=== PATIENT | male | born 1960 | race Caucasian/White ===

== ENCOUNTER → 2017-02-13 | Outpatient (CLI) | payer BC ==
[~2017-02-13] MED LIST: REGADENOSON 0.4 MG/5 ML DISP.SYRIN. IV ONE
--- NOTE | 2017-02-13 12:13 | RAD ---
APPROVED REPORT Test Type: Pharmacological Stress Nurse/Tech: Yudith Morgan R.N. Test Indications: CAD Cardiac History: Hypertension, 2 stents 5 yrs. ago Medications: See Electronic Medical Record Medical History: See Electronic Medical Record Resting ECG: NSR Resting Heart Rate: 64 bpm Resting Blood Pressure: 127/84mmHg Pretest Chest Pain: No chest pain Nurse/Tech Notes S1S2, lungs sound clear Consent: The procedure was explained to the patient in lay terms. Informed consent was witnessed. Cam eout was entered into [employer]. History and Stress Test performed by Yudith Morgan R.N. Pharm. Details Pharmacologic stress testing was performed using 0.4mg per 5ml of regadenoson given intravenously ove r 7-10 seconds. Stress Symptoms No chest pain or symptoms. POST EXERCISE Reason for Termination: Infusion complete Max HR: 92 bpm Max Blood Pressure: 117/74mmHg Blood Pressure response to exercise: Normal blood pressure response during stress. Chest Pain: No. Arrhythmia: No. ST Change: No. INTERPRETATION Stress EKG Conclusion: Baseline EKG showed sinus rhythm. No ischemic changes at peak stress. No arr hythmias. Imaging Protocol IMAGE PROTOCOL: Rest Tc-99m/stress Tc-99m 1 day Rest: Stress: Viability: Radiopharm.Tc99m MiatxnzcbQv93y Sestamibi Dose11.2mCi 34.4mCi Duration 15min. 10min. Img Date 02/13/2017 02/13/2017 Inj-Img Qgbj85yvs. 60min. Rest Admin Site:IV - Left HandAdministrator:SPARKLE Crocker Stress Admin Site: IV - Left HandAdministrator: SPARKLE Crocker STRESS DATA End Diast. Vol.145.0mlAv. Heart Rate80.0bpm End Syst. Vol.44.0mlCO Index BSA8.1L/min Myocardial Pvrm584.0gEject. Ulhggzdv70.0% Stress Rates Pk. Fill Rate3.28EDV/secLVtime Pk. Fill 194.49msec Pk. Empty Rate4.87ESV/secLVtime Pk. Kqzmx027.53msec 08/27 Pk. Fill1.89EDV/sec Stress Scores Regional WT0.00Summed WT1.00 Regional WM0.00Summed WM1.00 Study quality was good. Left Ventricular size was Normal at Rest and Stress. Lung uptake was Normal. Left Ventricular ejection fraction is 70%. LV Perfusion Scintigraphic images showed small to moderate fixed defect involving the anteroapical wall consistent with previous myocardial infarction without any significant reversibility. Wall Motion Normal regional wall motion. LV Perf. Quant 17 Seg. SSS4.00 17 Seg. SRS12.00 17 Seg. SDS0.00 Stress Defect Extent (% LAD)23.80Rest Defect Extent (% LAD)46.90Rev. Defect Extent (% LAD)0.00 Stress Defect Extent (% LCX) 0.00Rest Defect Extent (% LCX)16.30Rev. Defect Extent (% LCX)0.00 Stress Defect Extent (% RCA)0.00Rest Defect Extent (% RCA)1.10Rev. Defect Extent (% RCA)0.00 Stress Defect Extent (% SIDDHARTHA)10.00Rest Defect Extent (% SIDDHARTHA)27.80Rev. Defect Extent (% SIDDHARTHA)0.00 Conclusion 1. Regadenoson cardioisotope stress test showed cncuq-ff-lahmdrxz anteroapical wall infarction withou t any significant ischemia. 2. Normal left ventricular systolic function with ejection fraction calculated at 70%. 3. Low risk for cardiac events.
--- NOTE | 2017-02-13 13:29 | RAD ---
APPROVED REPORT Patient Location : OUT-PATIENT Indications VENOUS INSUFFICIENCY Findings Lorenzo scale images of the saphenofemoral junctions and great saphenous veins were obtained. Grayscale images are off the lesser saphenous veins were also obtained. The right great saphenous vein measures approximate 7 mm at the saphenofemoral junction and does not show any evidence of reflux. The right lesser saphenous vein measures approximate 5 mm and does not s how any evidence of reflux. The left great saphenous vein measures 6 mm in the lesser saphenous vein measures 4 mm and these do not show any evidence of reflux. Critical Notification Critical Value: No <Conclusion> No evidence of reflux in the bilateral greater and lesser saphenous veins. No evidence of thrombus on limited imaging.
== END | disposition home or self-care (01) ==
LOC: NM 14:15
PROVIDERS: ATTEND Internal Medicine Cardiovascular Disease
DX: I25.10 Atherosclerotic heart disease of native coronary artery without angina pectoris (principal); I87.2 Venous insufficiency (chronic) (peripheral); I10 Essential (primary) hypertension; Z95.5 Presence of coronary angioplasty implant and graft; Z79.01 Long term (current) use of anticoagulants
CPT/HCPCS: 78452; 93017; 93970; 96374; 96375; 96376; A9500; J2785

== ENCOUNTER → 2018-10-26 | Outpatient (CLI) | payer BC ==
--- NOTE | 2018-10-26 11:52 | CARD ---
MR#: [id number] Date of Study: 10/26/2018 Ordering Physician: KIMMIE MEYER, Referring Physician: KIMMIE MEYER Tech: Morenita Foy ANY APPROVED REPORT EXAM: Two-dimensional and M-mode echocardiogram with Doppler and color Doppler. Other Information Quality : AverageHR: 64bpm Rhythm : NSR INDICATION CAD 2D DIMENSIONS RVDd3.9 (2.9-3.5cm)Left Atrium(2D)3.5 (1.6-4.0cm) IVSd1.5 (0.7-1.1cm)Aortic Root(2D)3.4 (2.0-3.7cm) LVDd4.1 (3.9-5.9cm)LVOT Diameter2.1 (1.8-2.4cm) PWd1.1 (0.7-1.1cm)LVDs2.0 (2.5-4.0cm) FS (%) 50.5 %SV60.0 ml LVEF(%)79.0 (>50%) Aortic Valve AoV Peak Ranulfo.145.3cm/sAoV VTI28.4cm AO Peak GR.8.4mmHgLVOT Peak Ranulfo.108.1cm/s AO Mean GR.4mmHgAVA (VMAX)2.65cm2 WANDY (VTI)2.70cm2 Mitral Valve MV E Xwuazpwy99.0cm/sMV DECEL FIUC175fy MV A Pygckwdm21.9cm/sE/A Ratio0.8 MV A Lllijbwn888cd Pulmonary Valve PV Peak Exjjhpme876.4cm/s Tricuspid Valve TR P. Lpudhwqm978ui/sRAP CDFMEJMY3yoNu TR Peak Gr.20wuLzUDKU89egHu LEFT VENTRICLE The left ventricle is normal size. Proximal septal thickening is noted. The left ventricular systolic function is normal and the ejection fraction is within normal range. The Ejection Fraction is 65-70% . There is normal LV segmental wall motion. Transmitral Doppler flow pattern is Grade I-abnormal rela xation pattern. RIGHT VENTRICLE The right ventricle is borderline dilated. There is normal right ventricular wall thickness. The righ t ventricular systolic function is normal. ATRIA The left atrium size is normal. The right atrium size is normal. The interatrial septum is intact wit h no evidence for an atrial septal defect or patent foramen ovale as noted on 2-D or Doppler imaging. AORTIC VALVE The aortic valve is trileaflet. Doppler and Color Flow revealed no significant aortic regurgitation. There is no significant aortic valvular stenosis. MITRAL VALVE The mitral valve is normal in structure and function. There is no evidence of mitral valve prolapse. There is no mitral valve stenosis. Doppler and Color Flow revealed no mitral valve regurgitation note d. TRICUSPID VALVE The tricuspid valve is normal in structure and function. Doppler and Color Flow revealed trace tricus pid regurgitation. The PA pressure was estimated at 20 mmHg. There is no tricuspid valve prolapse or vegetation. There is no tricuspid valve stenosis. PULMONIC VALVE Doppler and Color Flow revealed trace to mild pulmonic valvular regurgitation. There is no pulmonic v alvular stenosis. GREAT VESSELS The aortic root is normal in size. The ascending aorta is normal in size. The IVC is normal in size a nd collapses >50% with inspiration. PERICARDIAL EFFUSION There is no evidence of significant pericardial effusion. Critical Notification Critical Value: No <Conclusion> The left ventricular systolic function is normal and the ejection fraction is within normal range. Th e Ejection Fraction is 65-70%. There is normal LV segmental wall motion. Signed by : Chai Phillips, Electronically Approved : 10/26/2018 11:51:26
== END | disposition home or self-care (01) ==
LOC: ECHO 09:18
PROVIDERS: ATTEND Internal Medicine Cardiovascular Disease
DX: I25.10 Atherosclerotic heart disease of native coronary artery without angina pectoris (principal); R00.8 Other abnormalities of heart beat
CPT/HCPCS: 93306

== ENCOUNTER → 2019-06-28 | Outpatient (CLI) | payer BC ==
--- NOTE | 2019-06-28 12:31 | RAD ---
MR#: [id number] Date of Study: 06/28/2019 Ordering Physician: KIMMIE MEYER Referring Physician: LISA SARGENT Tech: RT Naresh CelesteR) (N) APPROVED REPORT Test Type: Pharmacological Stress Nurse/Tech: Anita Mares RN Test Indications: CAD Cardiac History: Hypertension, 2 Cardiac stents 2011 Medications: See Electronic Medical Record Medical History: See Electronic Medical Record Resting ECG: SB Resting Heart Rate: 59 bpm Resting Blood Pressure: 115/74mmHg Pretest Chest Pain: No chest pain Nurse/Tech Notes S1S2, Lungs CTA Consent: The procedure was explained to the patient in lay terms. Informed consent was witnessed. Cam eout was entered into [employer]. History and Stress Test performed by RT Nadeem (R) (N) Pharm. Details Pharmacologic stress testing was performed using 0.4mg per 5ml of regadenoson given intravenously ove r 7-10 seconds. Stress Symptoms Dyspnea POST EXERCISE Reason for Termination: Infusion complete Max HR: 93 bpm Max Blood Pressure: 125/61mmHg Blood Pressure response to exercise: Normal blood pressure response during stress. Heart Rate response to exercise: Normal Chest Pain: No. Arrhythmia: No. ST Change: No. INTERPRETATION Stress EKG Conclusion: No evidence of stress induced EKG changes Imaging Protocol IMAGE PROTOCOL: Rest Tc-99m/stress Tc-99m 1 day Rest: Stress: Viability: Radiopharm.Tc99m ZmnngpkjgFz54t Sestamibi Dose10.5mCi 31.6mCi Duration 13min. 13min. Img Date 06/28/2019 06/28/2019 Inj-Img Lrfv99evz. 60min. Rest Admin Site:IV - Right AntecubitalAdministrator:ANGELA Mckeon, SHANAE (R)(N) Stress Admin Site: IV - Right AntecubitalAdministrator: RT Naresh SilverR)(N) STRESS DATA End Diast. Vol.122.0mlLVEDV index BSA50.0ml End Syst. Vol.46.0mlLVESV index BSA19.0ml Myocardial Fgsy931.0gEject. Hwrpesag04.0% Stress Scores Regional WT1.00Summed WT3.00 Regional WM0.00Summed WM3.00 LV Perfusion There is a moderate sized, mid to distal anterior, apical of severe intensity FIXED perfusion defect suggestive of prior infarct without any active evidence of ischemia. Wall Motion Mild apical hypokinesis. EF 55% LV Perf. Quant 17 Seg. SSS8.00 17 Seg. SRS16.00 17 Seg. SDS0.00 Stress Defect Extent (% LAD)43.80Rest Defect Extent (% LAD)55.00Rev. Defect Extent (% LAD)0.00 Stress Defect Extent (% LCX) 3.80Rest Defect Extent (% LCX)28.80Rev. Defect Extent (% LCX)0.00 Stress Defect Extent (% RCA)0.00Rest Defect Extent (% RCA)3.30Rev. Defect Extent (% RCA)0.00 Stress Defect Extent (% SIDDHARTHA)19.60Rest Defect Extent (% SIDDHARTHA)33.70Rev. Defect Extent (% SIDDHARTHA)0.00 Other Information Quality:Average Risk Assessment: Moderate Risk Conclusion 1. No evidence of stress induced EKG changes 2. FIXED anterior/apical perfusion defects as noted above. 3. Normal EF at 55% 4. Moderate risk for future CV events. Signed by : Chai Phillips, Electronically Approved : 06/28/2019 12:30:34
== END | disposition home or self-care (01) ==
LOC: NM 09:03
PROVIDERS: ATTEND Internal Medicine Cardiovascular Disease
DX: I25.10 Atherosclerotic heart disease of native coronary artery without angina pectoris (principal); E11.9 Type 2 diabetes mellitus without complications; J44.9 Chronic obstructive pulmonary disease, unspecified; Z88.0 Allergy status to penicillin; Z87.891 Personal history of nicotine dependence; Z95.5 Presence of coronary angioplasty implant and graft
CPT/HCPCS: 78452; 93017; A9500; J2785

== ENCOUNTER → 2020-07-06 | Outpatient (CLI) | payer BC ==
--- NOTE | 2020-07-06 10:08 | CARD ---
MR#: [id number] Date of Study: 07/06/2020 Ordering Physician: KIMMIE MEYER, Referring Physician: KIMMIE MEYER, Tech: Marie Solomon APPROVED REPORT EXAM: Two-dimensional and M-mode echocardiogram with Doppler and color Doppler. Other Information Quality : AverageHR: 68bpm INDICATION Cardiac Disease: CAD RISK FACTORS Hyperlipidemia 2D DIMENSIONS RVDd5.0 (2.9-3.5cm)Left Atrium(2D)3.2 (1.6-4.0cm) IVSd0.9 (0.7-1.1cm)Aortic Root(2D)3.6 (2.0-3.7cm) LVDd5.0 (3.9-5.9cm)LVOT Diameter2.1 (1.8-2.4cm) PWd0.9 (0.7-1.1cm)LVDs3.3 (2.5-4.0cm) FS (%) 32.9 %SV71.0 ml LVEF(%)61.1 (>50%) Aortic Valve AoV Peak Ranulfo.114.2cm/sAoV VTI22.1cm AO Peak GR.5.2mmHgLVOT Peak Ranulfo.109.0cm/s LVOT VTI 18.36cmAO Mean GR.3mmHg WANDY (VMAX)2.60hl3VUM (VTI)2.94cm2 Mitral Valve MV E Iuzclusw44.0cm/sMV DECEL MURA839ga MV A Istxvedz66.9cm/sMV LJT454tl E/A Ratio0.9MVA (PHT)1.25cm2 TDI E/Lateral E'6.9E/Medial E'4.8 Pulmonary Valve PV Peak Dnrxfysu897.8cm/sPV Peak Grad.5mmHg Tricuspid Valve TR P. Kdtlwpon939lj/sRAP RPFTBEHH4dwFa TR Peak Gr.99csApIZKN52ukPb Pulmonary Vein S1 Jyhyshds71.9cm/sD2 Nqnhssxl41.6cm/s PVa rmjvzhps711ayta LEFT VENTRICLE The left ventricle is normal size. There is normal left ventricular wall thickness. The left ventricu lar systolic function is normal and the ejection fraction is within normal range. The Ejection Fracti on is 55-60%. There is normal LV segmental wall motion. Transmitral Doppler flow pattern is Grade I-a bnormal relaxation pattern. RIGHT VENTRICLE The right ventricle is mildly dilated. There is normal right ventricular wall thickness. The right ve ntricular systolic function is normal. ATRIA The left atrium size is normal. The right atrium size is normal. The interatrial septum is intact wit h no evidence for an atrial septal defect or patent foramen ovale as noted on 2-D or Doppler imaging. AORTIC VALVE The aortic valve is thickened but opens well. Doppler and Color Flow revealed no significant aortic r egurgitation. There is no significant aortic valvular stenosis. Calculated aortic valve area is 3.01 cm2 with maximum pressure gradient of 6 mmHg and mean pressure gradient of 4 mmHg. MITRAL VALVE The mitral valve is normal in structure and function. There is no evidence of mitral valve prolapse. There is no mitral valve stenosis. Doppler and Color Flow revealed no mitral valve regurgitation note d. TRICUSPID VALVE The tricuspid valve is normal in structure and function. Doppler and Color Flow revealed trace tricus pid regurgitation with an estimated PAP of 28 mmHg. There is no tricuspid valve stenosis. PULMONIC VALVE The pulmonic valve is not well visualized. Doppler and Color Flow revealed trace to mild pulmonic nii vular regurgitation. There is no pulmonic valvular stenosis. GREAT VESSELS The aortic root is normal in size. The ascending aorta is normal in size. The IVC was not well visual ized. PERICARDIAL EFFUSION There is no evidence of significant pericardial effusion. Critical Notification Critical Value: No <Conclusion> The left ventricular systolic function is normal and the ejection fraction is within normal range. Th e Ejection Fraction is 55-60%. There is normal LV segmental wall motion. Signed by : Chai Phillips, Electronically Approved : 07/06/2020 10:07:38
== END ==
LOC: ECHO 08:27
PROVIDERS: ATTEND Internal Medicine Cardiovascular Disease
DX: I37.8 Other nonrheumatic pulmonary valve disorders (principal); I25.10 Atherosclerotic heart disease of native coronary artery without angina pectoris
CPT/HCPCS: 93306

== ENCOUNTER 2022-01-04 08:32 | Outpatient (CLI) | payer BC ==
[~2022-01-04] VITALS: Ht 182.9 cm; Wt 120.5 kg
[2022-01-04] VITALS (11 sets, daily range): BP systolic 105–134; BP diastolic 61–85
[2022-01-04 09:24] LABS: HEMATOCRIT 41.2 % (39.0-53.0); HEMOGLOBIN 13.9 g/dL (13.0-17.5); RED BLOOD COUNT 4.21 x10^6/uL (4.30-5.70); RED CELL DISTRIBUTION WIDTH 13.1 % (11.5-14.5); WHITE BLOOD COUNT 4.9 x10^3/uL (4.0-11.0)
[2022-01-04 09:38] LABS: CALCIUM 8.7 mg/dL (8.5-10.1); CREATININE 0.9 mg/dL (0.7-1.3); GFR 86.1; POTASSIUM 4.1 mmol/L (3.5-5.1)
[2022-01-04 09:47] LABS: PROTHROMBIN TIME PATIENT 12.8 SEC (11.7-14.0)
[2022-01-04] MEDS ORDERED: CARV6.25 PO (09:51)
[2022-01-04] MEDS ORDERED: LISI5TAB15 PO (09:51)
[2022-01-04] MEDS ORDERED: PANT20TA2 PO (09:51)
[2022-01-04] MEDS ORDERED: UBID100C26 PO (09:51)
[2022-01-04] MEDS ORDERED: ASPI-886 PO (09:51)
[2022-01-04] MEDS ORDERED: ATOR40TA PO (09:51)
[2022-01-04] MEDS ORDERED: LIDOCAINE 1% PF 2 ML VIAL. ONE (10:01)
[2022-01-04] MEDS ORDERED: NITROGLYCERIN 200 MCG/2 ML SYRINGE FOR CATH/VASC LAB. ONE (10:23)
[2022-01-04] MEDS ORDERED: VERAPAMIL 5 MG/2 ML VIAL. ONE (10:23)
[2022-01-04] MEDS ORDERED: HEPARIN for IV BOLUS 10,000 UNIT/10 ML VIAL. ONE (10:23)
[2022-01-04] MEDS ORDERED: fentaNYL PF VIAL 100 MCG/2 ML VIAL ONE (10:23)
[2022-01-04] MEDS ORDERED: MIDAZOLAM HCL/PF 5 MG/5 ML VIAL. ONE (10:23)
[2022-01-04] MEDS ORDERED: MIDAZOLAM HCL/PF 5 MG/5 ML VIAL. IV ONE (11:00)
[2022-01-04] MEDS ORDERED: VERAPAMIL 5 MG/2 ML VIAL. IART ONE (11:00)
[2022-01-04] MEDS ORDERED: fentaNYL PF VIAL 100 MCG/2 ML VIAL IV ONE (11:00)
[2022-01-04] MEDS ORDERED: LIDOCAINE 1% PF 2 ML VIAL. INJ ONE (11:00)
[2022-01-04] MEDS ORDERED: HEPARIN for IV BOLUS 10,000 UNIT/10 ML VIAL. IART ONE (11:00)
[2022-01-04] MEDS ORDERED: IODIXANOL 320 MG/ML 100 ML VIAL. IART ONE (11:00)
[2022-01-04] MEDS ORDERED: NITROGLYCERIN 200 MCG/2 ML SYRINGE FOR CATH/VASC LAB. IART ONE (11:00)
--- NOTE | 2022-01-04 11:05 | PDOC ---
MODERATE SEDATION ASSESSMENT RISKS/ALTERNATIVES Risks/Alternatives Risks and alternatives of this type of sedation and procedure discussed with: RISK/ALTERNATIVES: Patient H & P ON CHART H & P H & P on chart and reviewed for co-morbid conditions and appropriate labs. H&P ON CHART: Yes STATUS PREG STATUS ASSESSED: N/A MEDS/ALLERGIES REVIEWED Meds/Allergies Reviewed Medications and Allergies including time and route of recently administered narcotics and sedatives. MEDS/ALLERGIES REVIEWED: Yes ASA RATING ASA RATING: II AIRWAY ASSESSMENT Airway Assessment Airway patency, oral function limitations, presence of caps, crowns, dentures, partials, and ability to extend neck assessed. AIRWAY ASSESSMENT: Yes MALLAMPATI SCORE MALLAMPATI SCORE: II PRE-SEDATION ASSESSMENT PRE-SEDATION ASSESSMENT: Yes KIMMIE MEYER MD January 04, 2022 11:05
[2022-01-04] MEDS ORDERED: IV 1/2 NORMAL SALINE 1,000 ML IV SCH (11:15)
--- NOTE | 2022-01-04 11:18 | CARD ---
MR#: [id number] Date of Study: 01/04/2022 Ordering Physician: KIMMIE GORE, Referring Physician: KIMMIE GORE Tech: CHAPARRO HUMPHREYS APPROVED REPORT Technologist: CHAPARRO HUMPHREYS Nurse: Deb Hampton RN Procedure(s) performed: Left heart catheterization, selective coronary angiography via right transrad ial approach MODERATE SEDATION TIME: 26 MINUTES FLUORO TIME: 2.1 MIN DOSE: 35.5 GYCM2 CONTRAST: 28CC VISI INDICATION The indication(s) include : unstable angina . [facility] Clinical Frailty Scale [facility] Clinical Frailty Scale: Mildly Frail Heart Failure Heart Failure: No CASE TECHNIQUE IV conscious sedation was used throughout procedure with appropriate monitoring and was performed in the presence of a registered nurse who was an independent trained observer other than the physician p erforming the procedure. During this case, Fluoroscopy and low osmolar contrast were used for imaging . Specimen(s) Removed: No Estimated Blood loss: 15 cc's. PROCEDURE NARRATIVE After explaining the risks, benefits and alternative options, informed consent was obtained from [place] ent. Patient was brought to the cardiac [employer] [facility]ter and right wrist was prepped and draped in the usual fashion after confirming a positive modified Minor's test. Arterial access was obtained in the righ t radial artery and a 6 Lao sheath was inserted. 6 Lao Carlos catheter was used to perform will ective angiography of the left and right coronary arteries. LVEDP and transaortic gradients were gillian sured. Patient tolerated the procedure well. Hemostasis was achieved using TR band. There were no immediate complications. The following findings were noted. FINDINGS 1. Hemodynamics: Left ventricular end-diastolic pressure of 8 mmHg. No pullback gradient across the aortic valve. 2. Coronary angiography: a. The left main coronary artery arose from the left sinus of Valsalva, gave rise to the left anteri or descending and left circumflex arteries and did not show any significant stenosis. b. The left anterior descending artery showed widely patent stent in the proximal to mid segment. c. The left circumflex artery did not show any significant stenosis. d. The right coronary artery arose from the right sinus of Valsalva and showed 90% followed by 100% chronic total occlusion in the mid segment with faint distal reconstitution from right to right and l ktv-ns-tirjf collaterals. This was described in prior cardiac catheterization. Conclusion Patent previously placed stent in the left anterior descending artery and known chronic total occlusi on of the right coronary artery. No lesions needing intervention were noted. Recommendations Medical Therapy Signed by : Kimmie Gore, Electronically Approved : 01/04/2022 11:18:09
--- NOTE | 2022-01-04 13:46 | NUR ---
Patient discharged. PIV removed. R Rad site dressing changed, TR removed. Site clean, dry, intact. No bleeding. Armboard re-applied. VS stable. Instructions provided on site care, sedation. No questions at time of d/c. RN stressed importance of not using wrist, monitoring for bleeding. driving home. All belongings taken w/ patient at time of d/c. Including cell phone.
== END 2022-01-04 13:45 | disposition home or self-care (01) ==
LOC: CCL 08:32
PROVIDERS: ATTEND Internal Medicine Cardiovascular Disease
DX: I25.110 Atherosclerotic heart disease of native coronary artery with unstable angina pectoris (principal); I25.82 Chronic total occlusion of coronary artery; I42.9 Cardiomyopathy, unspecified; E78.00 Pure hypercholesterolemia, unspecified; K21.9 Gastro-esophageal reflux disease without esophagitis; Z98.890 Other specified postprocedural states; Z79.899 Other long term (current) drug therapy
CPT/HCPCS: 36415; 80048; 85027; 85610; 93458; 99152; 99153; C1769; C1894; J1644; J2250; J3010; J3490; Q9967